=== PATIENT | female | born 1940 | race African-American/Black ===

== ENCOUNTER 2016-11-14 08:57 | Outpatient (CLI) | payer OTHER ==
[2016-11-14] MEDS ORDERED: BARIUM SULFATE 135 ML SUSP.RECON (E-Z-HD) PO ONE (09:23)
== END 2016-11-14 19:38 | disposition home or self-care (01) ==
LOC: SRD 08:57
PROVIDERS: ATTEND Otolaryngology Plastic Surgery within the Head & Neck
DX: K44.9 Diaphragmatic hernia without obstruction or gangrene (principal); R13.10 Dysphagia, unspecified; I70.0 Atherosclerosis of aorta
CPT/HCPCS: 74220-TC

== ENCOUNTER 2019-06-09 22:28 | Inpatient (IN) | payer OTHER ==
[~2019-06-09] VITALS: Ht 172.7 cm; Wt 90.7 kg
[2019-06-10] MEDS ORDERED: OMEGA-3/DHA/EPA/FISH OIL 1 GM CAPSULE ONE (14:30)
[2019-06-11 12:00] VITALS: BP_SYST 140
[2019-06-11 16:55] VITALS: BP_SYST 139
[2019-06-11] MEDS: IBUPROFEN 800 MG TABLET PO SCH (17:00)
[2019-06-11] MEDS: D5/0.45 NS 1,000 ML IV SCH (17:00)
[2019-06-11] MEDS ORDERED: ACETAMINOPHEN 325 MG TABLET PO PRN (17:00)
[2019-06-11] MEDS: BACLOFEN 10 MG TABLET PO SCH ×2 (17:00→21:00)
[2019-06-11 20:49] VITALS: BP_SYST 142
[2019-06-11] MEDS: cefTRIAXone 1 GM IVPB PREMIX 50 ML IV SCH (21:00)
[2019-06-11] MEDS: CALCIUM CITRATE PO SCH (21:00)
[2019-06-11] MEDS: MAGNESIUM PO SCH (21:00)
[2019-06-11] MEDS: ZINC PO SCH (21:00)
[2019-06-11] MEDS: LATANOPROST 2.5 ML DROPS (XALATAN) OP SCH (21:00)
[2019-06-12] VITALS: BP_SYST 153
[2019-06-12] MEDS: MORPHINE 2 MG/ML INJ. SYRINGE IVP PRN ×5 (00:25→22:28)
[2019-06-12] MEDS ORDERED: MORPHINE 2 MG/ML INJ. SYRINGE ONE (00:38)
[2019-06-12] MEDS: D5/0.45 NS 1,000 ML IV SCH ×2 (05:02→13:03)
[2019-06-12] MEDS: LEVOTHYROXINE SODIUM 0.05 MG TABLET PO SCH (05:43)
[2019-06-12 08:00] VITALS: BP_SYST 136
[2019-06-12 08:21] LABS: BASOPHILS # (AUTO) 0.1 K/uL (0.0-0.2); BASOPHILS % (AUTO) 0.9 % (0.0-2.0); EOSINOPHILS # (AUTO) 0.2 K/uL (0.0-0.4); HEMATOCRIT 39.9 % (36-48); HEMOGLOBIN 13.2 g/dL (12.0-16.0); LYMPHOCYTES # (AUTO) 1.2 K/uL (1.0-5.5); LYMPHOCYTES % (AUTO) 20.5 % (20.5-51.5); MEAN CORPUSCULAR HEMOGLOBIN 33 pg (27-31); MEAN CORPUSCULAR HGB CONC 33 % (32-36); MEAN CORPUSCULAR VOLUME 101 fL (79.0-98.0); MONOCYTES # (AUTO) 0.6 K/uL (0.0-1.0); MONOCYTES % (AUTO) 10.8 % (1.7-9.3); NEUTROPHILS # (AUTO) 3.8 K/uL (1.8-7.7); NEUTROPHILS % (AUTO) 63.8 % (40.0-70.0); PLATELET COUNT (AUTO) 157 K/uL (130-430); RED BLOOD CELL COUNT(AUTO) 3.96 MIL/uL (4.2-6.2); RED CELL DISTRIBUTION WIDTH 13.3 % (9.0-15.0)
[2019-06-12 08:29] LABS: ANION GAP 3 (5-15); CALCIUM 7.6 mg/dL (8.4-11.0); CHLORIDE 104 mmol/L (98-107); CREATININE 0.52 mg/dL (0.55-1.30); GLUCOSE 126 mg/dL (70-99); POTASSIUM 3.4 mmol/L (3.5-5.1); SODIUM SERUM 137 mmol/L (136-145); UREA NITROGEN, BLOOD 9 mg/dL (8-21)
[2019-06-12] MEDS: GLUCOSAMINE 1500 MG PO SCH (08:50)
[2019-06-12] MEDS: OMEGA PO SCH (08:50)
[2019-06-12] MEDS: FISH OIL 1200 MG PO SCH (08:50)
[2019-06-12] MEDS: IBUPROFEN 800 MG TABLET PO SCH ×3 (08:56→16:51)
[2019-06-12] MEDS: amLODIPine BESYLATE 5 MG TABLET PO SCH (08:56)
[2019-06-12] MEDS: BACLOFEN 10 MG TABLET PO SCH ×4 (08:56→22:25)
[2019-06-12] MEDS: NAPROXEN 250 MG TABLET PO SCH (08:57)
[2019-06-12 08:58] LABS: C-REACTIVE PROTEIN QUANT 11.3 mg/dL (0-0.5)
[2019-06-12] MEDS: TETRAHYDROZOLINE OPHTHALMIC DROPS (VISINE) OP SCH (08:59)
[2019-06-12 11:06] VITALS: BP_SYST 133
[2019-06-12 11:11] LABS: ERYTHROCYTE SEDIMENTATION RATE 43 MM/HR (0-20)
[2019-06-12] MEDS ORDERED: IBUPROFEN 800 MG TABLET ONE (16:44)
[2019-06-12] MEDS ORDERED: BACLOFEN 10 MG TABLET ONE (16:44)
[2019-06-12 20:00] VITALS: BP_SYST 145
[2019-06-12] MEDS: CALCIUM CITRATE PO SCH (21:00)
[2019-06-12] MEDS: MAGNESIUM PO SCH (21:00)
[2019-06-12] MEDS: ZINC PO SCH (21:00)
[2019-06-12] MEDS: LATANOPROST 2.5 ML DROPS (XALATAN) OP SCH (22:27)
[2019-06-12] MEDS ORDERED: cefTRIAXone 1 GM IVPB PREMIX 50 ML IV ONE (23:03)
[2019-06-12] MEDS: cefTRIAXone 1 GM IVPB PREMIX 50 ML IV SCH (23:08)
[2019-06-13] VITALS: BP_SYST 139
[2019-06-13] MEDS ORDERED: FOSAMAX 70 MG PO SCH (06:00)
[2019-06-13] MEDS: D5/0.45 NS 1,000 ML IV SCH ×3 (06:23→19:10)
[2019-06-13] MEDS: MORPHINE 2 MG/ML INJ. SYRINGE IVP PRN (06:46)
[2019-06-13] MEDS ORDERED: MORPHINE 2 MG/ML INJ. SYRINGE ONE (06:57)
[2019-06-13] MEDS: LEVOTHYROXINE SODIUM 0.05 MG TABLET PO SCH (07:00)
[2019-06-13 07:48] LABS: BASOPHILS % (AUTO) 0.9 % (0.0-2.0); EOSINOPHILS # (AUTO) 0.4 K/uL (0.0-0.4); EOSINOPHILS % (AUTO) 7.8 % (0.0-4.0); HEMATOCRIT 40.9 % (36-48); HEMOGLOBIN 13.5 g/dL (12.0-16.0); LYMPHOCYTES # (AUTO) 1.2 K/uL (1.0-5.5); LYMPHOCYTES % (AUTO) 25.1 % (20.5-51.5); MEAN CORPUSCULAR HEMOGLOBIN 34 pg (27-31); MEAN CORPUSCULAR HGB CONC 33 % (32-36); MEAN CORPUSCULAR VOLUME 101 fL (79.0-98.0); MONOCYTES # (AUTO) 0.6 K/uL (0.0-1.0); MONOCYTES % (AUTO) 13.3 % (1.7-9.3); NEUTROPHILS # (AUTO) 2.5 K/uL (1.8-7.7); NEUTROPHILS % (AUTO) 52.9 % (40.0-70.0); PLATELET COUNT (AUTO) 177 K/uL (130-430); RED BLOOD CELL COUNT(AUTO) 4.04 MIL/uL (4.2-6.2); RED CELL DISTRIBUTION WIDTH 13.4 % (9.0-15.0); WHITE BLOOD COUNT (AUTO) 4.8 K/uL (4.8-10.8)
[2019-06-13] MEDS: NAPROXEN 250 MG TABLET PO SCH (08:00)
[2019-06-13 08:20] LABS: ANION GAP 7 (5-15); CALCIUM 8.1 mg/dL (8.4-11.0); CHLORIDE 106 mmol/L (98-107); CREATININE 0.57 mg/dL (0.55-1.30); GLUCOSE 91 mg/dL (70-99); POTASSIUM 3.9 mmol/L (3.5-5.1); SODIUM SERUM 142 mmol/L (136-145); UREA NITROGEN, BLOOD 15 mg/dL (8-21)
[2019-06-13 08:51] LABS: C-REACTIVE PROTEIN QUANT 10.4 mg/dL (0-0.5)
[2019-06-13 08:55] LABS: ERYTHROCYTE SEDIMENTATION RATE 36 MM/HR (0-20)
[2019-06-13] MEDS: IBUPROFEN 800 MG TABLET PO SCH ×3 (09:00→17:25)
[2019-06-13] MEDS: BACLOFEN 10 MG TABLET PO SCH ×3 (09:00→17:24)
[2019-06-13] MEDS: FISH OIL 1200 MG PO SCH (09:00)
[2019-06-13] MEDS: GLUCOSAMINE 1500 MG PO SCH (09:00)
[2019-06-13] MEDS: OMEGA PO SCH (09:00)
[2019-06-13] MEDS: TETRAHYDROZOLINE OPHTHALMIC DROPS (VISINE) OP SCH (09:00)
[2019-06-13 11:30] VITALS: BP_SYST 143
[2019-06-13] MEDS: amLODIPine BESYLATE 5 MG TABLET PO SCH (12:28)
[2019-06-13 15:29] VITALS: BP_SYST 136
[2019-06-14 00:50] VITALS: BP_SYST 156
[2019-06-14] MEDS: D5/0.45 NS 1,000 ML IV SCH ×2 (05:42→16:41)
[2019-06-14] MEDS: LEVOTHYROXINE SODIUM 0.05 MG TABLET PO SCH (07:39)
[2019-06-14 08:18] VITALS: BP_SYST 149
[2019-06-14] MEDS: NAPROXEN 250 MG TABLET PO SCH (08:29)
[2019-06-14] MEDS: TETRAHYDROZOLINE OPHTHALMIC DROPS (VISINE) OP SCH (09:00)
[2019-06-14] MEDS: IBUPROFEN 800 MG TABLET PO SCH ×4 (09:00→17:00)
[2019-06-14] MEDS: OMEGA PO SCH (09:00)
[2019-06-14] MEDS: GLUCOSAMINE 1500 MG PO SCH (09:00)
[2019-06-14] MEDS: FISH OIL 1200 MG PO SCH (09:00)
[2019-06-14] MEDS: amLODIPine BESYLATE 5 MG TABLET PO SCH (09:28)
[2019-06-14] MEDS: BACLOFEN 10 MG TABLET PO SCH ×4 (09:28→21:08)
[2019-06-14 12:00] VITALS: BP_SYST 146
[2019-06-14 19:00] VITALS: BP_SYST 134; BP_SYST 145
[2019-06-14] MEDS: traMADol HCL HCL 50 MG TABLET (ULTRAM) PO PRN (19:47)
[2019-06-14 20:00] VITALS: BP_SYST 134
[2019-06-14] MEDS: ZINC PO SCH (21:00)
[2019-06-14] MEDS: CALCIUM CITRATE PO SCH (21:00)
[2019-06-14] MEDS: MAGNESIUM PO SCH (21:00)
[2019-06-14] MEDS: cefTRIAXone 1 GM IVPB PREMIX 50 ML IV SCH ×2 (21:04→21:08)
[2019-06-14] MEDS: LATANOPROST 2.5 ML DROPS (XALATAN) OP SCH ×2 (21:06→21:08)
[2019-06-15 00:06] VITALS: BP_SYST 144
[2019-06-15] MEDS: D5/0.45 NS 1,000 ML IV SCH ×2 (01:00→11:00)
[2019-06-15] MEDS: LEVOTHYROXINE SODIUM 0.05 MG TABLET PO SCH (06:06)
[2019-06-15 07:17] LABS: BASOPHILS % (AUTO) 0.9 % (0.0-2.0); EOSINOPHILS # (AUTO) 0.2 K/uL (0.0-0.4); EOSINOPHILS % (AUTO) 4.2 % (0.0-4.0); HEMATOCRIT 38.4 % (36-48); LYMPHOCYTES # (AUTO) 1.2 K/uL (1.0-5.5); MEAN CORPUSCULAR HEMOGLOBIN 34 pg (27-31); MEAN CORPUSCULAR HGB CONC 34 % (32-36); MEAN CORPUSCULAR VOLUME 100 fL (79.0-98.0); MONOCYTES # (AUTO) 0.7 K/uL (0.0-1.0); MONOCYTES % (AUTO) 13.1 % (1.7-9.3); NEUTROPHILS # (AUTO) 2.9 K/uL (1.8-7.7); NEUTROPHILS % (AUTO) 57.8 % (40.0-70.0); PLATELET COUNT (AUTO) 198 K/uL (130-430); RED BLOOD CELL COUNT(AUTO) 3.86 MIL/uL (4.2-6.2); RED CELL DISTRIBUTION WIDTH 12.9 % (9.0-15.0); WHITE BLOOD COUNT (AUTO) 5.1 K/uL (4.8-10.8)
[2019-06-15 07:23] LABS: ANION GAP 4 (5-15); C-REACTIVE PROTEIN QUANT 3.6 mg/dL (0-0.5); CALCIUM 7.8 mg/dL (8.4-11.0); CHLORIDE 105 mmol/L (98-107); CREATININE 0.61 mg/dL (0.55-1.30); GLUCOSE 104 mg/dL (70-99); POTASSIUM 3.8 mmol/L (3.5-5.1); SODIUM SERUM 141 mmol/L (136-145); UREA NITROGEN, BLOOD 11 mg/dL (8-21)
[2019-06-15 08:12] VITALS: BP_SYST 136
[2019-06-15 08:27] LABS: ERYTHROCYTE SEDIMENTATION RATE 41 MM/HR (0-20)
[2019-06-15] MEDS: amLODIPine BESYLATE 5 MG TABLET PO SCH (08:47)
[2019-06-15] MEDS: NAPROXEN 250 MG TABLET PO SCH (08:47)
[2019-06-15] MEDS: BACLOFEN 10 MG TABLET PO SCH ×2 (08:48→12:48)
[2019-06-15] MEDS: IBUPROFEN 800 MG TABLET PO SCH ×2 (08:50→12:49)
[2019-06-15] MEDS: TETRAHYDROZOLINE OPHTHALMIC DROPS (VISINE) OP SCH (08:51)
[2019-06-15] MEDS: GLUCOSAMINE 1500 MG PO SCH (08:52)
[2019-06-15] MEDS: FISH OIL 1200 MG PO SCH (08:52)
[2019-06-15] MEDS: OMEGA PO SCH (08:52)
[2019-06-15] MEDS ORDERED: BACL10TA PO (09:29)
[2019-06-15] MEDS ORDERED: SYN50 PO (09:29)
[2019-06-15] MEDS ORDERED: XALEYE OP (09:29)
[2019-06-15] MEDS ORDERED: AMLO5TAB4 PO (09:29)
[2019-06-15] MEDS ORDERED: LEVO250T58 PO (09:29)
[2019-06-15] MEDS ORDERED: cefTRIAXone 1 GM IVPB PREMIX 50 ML IV ONE (10:30)
[2019-06-15 11:24] VITALS: BP_SYST 137
[2019-06-15 11:41] VITALS: BP_SYST 137
[2019-06-15] MEDS: traMADol HCL HCL 50 MG TABLET (ULTRAM) PO PRN (12:49)
[2019-06-16 10:36] LABS: BILIRUBIN,URINE NEGATIVE (NEGATIVE); CLARITY/URINE CLEAR (CLEAR); COLOR,URINE YELLOW (YELLOW); GLUCOSE,URINE NEGATIVE (NEGATIVE); KETONES,URINE NEGATIVE (NEGATIVE); PROTEIN URINE NEGATIVE (NEGATIVE)
[2019-06-16 10:37] LABS: BLOOD, URINE 2+ (NEGATIVE); LEUKOCYTE ESTERASE ,URINE 3+ (NEGATIVE); NITRITE, URINE NEGATIVE (NEGATIVE); UROBILINOGEN,URINE 0.2 (0.2-1.0)
[2019-06-16 10:42] LABS: WBC,URINE 20-50 /HPF (0-3)
[2019-06-16 10:43] LABS: BACTERIA,URINE MODERATE /HPF (None Seen); MUCUS,URINE 1+ /LPF (None Seen)
[2019-06-16 10:45] LABS: ANION GAP 6 (5-15); ASPARTATE AMINOTRANSFERASE 35 U/L (10-37); CALCIUM 8.7 mg/dL (8.4-11.0); CHLORIDE 102 mmol/L (98-107); CREATININE 0.74 mg/dL (0.55-1.30); GLUCOSE 119 mg/dL (70-99); POTASSIUM 3.5 mmol/L (3.5-5.1); SODIUM SERUM 139 mmol/L (136-145); TOTAL BILIRUBIN 0.4 mg/dL (0.0-1.0); UREA NITROGEN, BLOOD 17 mg/dL (8-21)
[2019-06-16 10:46] LABS: ALANINE AMINOTRANSFERASE 41 U/L (12-78); ALBUMIN 3.5 g/dL (3.4-4.8); PROTHROMBIN TIME 10.3 SECS (9.5-12.5)
[2019-06-16 10:47] LABS: HEMATOCRIT 41.6 % (36-48); HEMOGLOBIN 13.9 g/dL (12.0-16.0); RED BLOOD CELL COUNT(AUTO) 4.17 MIL/uL (4.2-6.2); WHITE BLOOD COUNT (AUTO) 5.5 K/uL (4.8-10.8)
[2019-06-16 10:48] LABS: LYMPHOCYTES % (AUTO) 15.4 % (20.5-51.5); MEAN CORPUSCULAR HEMOGLOBIN 33 pg (27-31); MEAN CORPUSCULAR HGB CONC 33 % (32-36); MEAN CORPUSCULAR VOLUME 100 fL (79.0-98.0); NEUTROPHILS % (AUTO) 69.9 % (40.0-70.0); PLATELET COUNT (AUTO) 167 K/uL (130-430); RED CELL DISTRIBUTION WIDTH 13.6 % (9.0-15.0)
[2019-06-16 10:49] LABS: BASOPHILS % (AUTO) 0.5 % (0.0-2.0); EOSINOPHILS # (AUTO) 0.1 K/uL (0.0-0.4); EOSINOPHILS % (AUTO) 1.2 % (0.0-4.0); LYMPHOCYTES # (AUTO) 0.9 K/uL (1.0-5.5); MONOCYTES # (AUTO) 0.7 K/uL (0.0-1.0); NEUTROPHILS # (AUTO) 3.9 K/uL (1.8-7.7)
[2019-06-23 09:50] LABS: BILIRUBIN,URINE NEGATIVE (NEGATIVE); BLOOD, URINE 3+ (NEGATIVE); CLARITY/URINE SLIGHTLY CLOUDY (CLEAR); COLOR,URINE YELLOW (YELLOW); GLUCOSE,URINE NEGATIVE (NEGATIVE); KETONES,URINE NEGATIVE (NEGATIVE); LEUKOCYTE ESTERASE ,URINE 3+ (NEGATIVE); NITRITE, URINE NEGATIVE (NEGATIVE); PROTEIN URINE TRACE (NEGATIVE); UROBILINOGEN,URINE 0.2 (0.2-1.0)
[2019-06-23 09:51] LABS: BACTERIA,URINE MODERATE /HPF (None Seen); WBC,URINE 50-80 /HPF (0-3)
[2019-06-23 09:52] LABS: MUCUS,URINE 1+ /LPF (None Seen)
== END 2019-06-15 13:53 | DRG 74 ==
LOC: SED 22:28 → SMU 06-10 05:32
PROVIDERS: ADMIT Preventive Medicine Preventive Medicine/Occupational Environmental Medicine; ATTEND Preventive Medicine Preventive Medicine/Occupational Environmental Medicine
DX: M54.10 Radiculopathy, site unspecified (principal); N39.0 Urinary tract infection, site not specified; G89.29 Other chronic pain; N20.0 Calculus of kidney; E78.5 Hyperlipidemia, unspecified; E03.9 Hypothyroidism, unspecified; E66.9 Obesity, unspecified; I10 Essential (primary) hypertension; J45.909 Unspecified asthma, uncomplicated; M19.90 Unspecified osteoarthritis, unspecified site; M81.0 Age-related osteoporosis without current pathological fracture; Z68.30 Body mass index [BMI] 30.0-30.9, adult; Z79.899 Other long term (current) drug therapy; Z91.041 Radiographic dye allergy status; Z91.012 Allergy to eggs; Z88.5 Allergy status to narcotic agent; Z91.013 Allergy to seafood
CPT/HCPCS: 36415; 72110; 72128; 72131; 80048; 80053; 81000-TC; 83605; 85025; 85610-TC; 85651-TC; 85730-TC; 86140; 87040-TC; 87086; 96365; 96375; 96376; 97116-GP; 97530-GP; 99285; J0696; J2270

== ENCOUNTER 2022-07-22 00:08 | Emergency (ER) | payer OTHER ==
[~2022-07-22] VITALS: Ht 162.6 cm; Wt 72.6 kg
[~2022-07-22 00:08] MED LIST: AMLO5TAB4 PO; BACL10TA PO; LEVO250T73 PO; NAPR-1172 PO; SYN50 PO; XALEYE OP
[2022-07-22 00:15] VITALS: BP_SYST 148
--- NOTE | 2022-07-22 00:42 | NUR ---
Patient to ER bed 3 to gown for evaluation. Side rails up. Report given to YOLIS MATA(REG).
--- NOTE | 2022-07-22 00:43 | NUR ---
ER at bedside examining patient.
[2022-07-22] MEDS ORDERED: ERYEYE LEFT EYE (02:26)
== END 2022-07-22 02:47 | disposition home or self-care (01) ==
LOC: SED 00:08
DX: T26.11XA Burn of cornea and conjunctival sac, right eye, initial encounter (principal); T26.12XA Burn of cornea and conjunctival sac, left eye, initial encounter; H16.002 Unspecified corneal ulcer, left eye; J45.909 Unspecified asthma, uncomplicated; I10 Essential (primary) hypertension; Z88.5 Allergy status to narcotic agent; Z91.012 Allergy to eggs; Z91.041 Radiographic dye allergy status; Z79.899 Other long term (current) drug therapy; X58.XXXA Exposure to other specified factors, initial encounter; Y93.89 Activity, other specified; Y92.89 Other specified places as the place of occurrence of the external cause; Y99.8 Other external cause status
CPT/HCPCS: 99283

== ENCOUNTER 2023-08-26 14:10 | Observation (INO) | payer OTHER ==
[~2023-08-26] VITALS: Ht 162.6 cm; Wt 70.3 kg
[2023-08-26 14:10] VITALS: BP_SYST 138; PULSE 87; RESP 19; TEMP 97.8; O2SAT 96
[~2023-08-26 14:10] MED LIST changes: +ERYEYE LEFT EYE
[2023-08-26] MEDS: NACL 0.9% 1,000 ML IV ONE (15:04)
[2023-08-26 15:06] LABS: BASOPHILS % (AUTO) 0.3 % (0.0-2.0); EOSINOPHILS # (AUTO) 0.3 K/uL (0.0-0.4); EOSINOPHILS % (AUTO) 6.2 % (0.0-4.0); HEMATOCRIT 38.8 % (36-48); LYMPHOCYTES # (AUTO) 1.2 K/uL (1.0-5.5); LYMPHOCYTES % (AUTO) 26.3 % (20.5-51.5); MEAN CORPUSCULAR HEMOGLOBIN 34 pg (27-31); MEAN CORPUSCULAR HGB CONC 34 % (32-36); MEAN CORPUSCULAR VOLUME 100 fL (79.0-98.0); MONOCYTES # (AUTO) 0.5 K/uL (0.0-1.0); NEUTROPHILS # (AUTO) 2.5 K/uL (1.8-7.7); NEUTROPHILS % (AUTO) 56.2 % (40.0-70.0); PLATELET COUNT (AUTO) 200 K/uL (130-430); RED BLOOD CELL COUNT(AUTO) 3.87 MIL/uL (4.2-6.2); RED CELL DISTRIBUTION WIDTH 13.5 % (9.0-15.0); WHITE BLOOD COUNT (AUTO) 4.4 K/uL (4.8-10.8)
[2023-08-26 15:24] LABS: INFLUENZA TYPE A Negative (NEGATIVE); INFLUENZA TYPE B NEGATIVE (NEGATIVE)
[2023-08-26 15:37] LABS: ANION GAP 6 (5-15); CALCIUM 8.4 mg/dL (8.4-11.0); CARBON DIOXIDE 32 mmol/L (23-29); CHLORIDE 107 mmol/L (98-107); CREATININE 0.64 mg/dL (0.55-1.30); GLUCOSE 94 mg/dL (74-106); POTASSIUM 3.5 mmol/L (3.5-5.1); SODIUM SERUM 145 mmol/L (136-145); UREA NITROGEN, BLOOD 19 mg/dL (8-21)
[2023-08-26] MEDS ORDERED: TRAM50TA2 PO (16:37)
[2023-08-26 18:18] LABS: BILIRUBIN,URINE NEGATIVE (NEGATIVE); BLOOD, URINE NEGATIVE (NEGATIVE); CLARITY/URINE CLEAR (CLEAR); COLOR,URINE YELLOW (YELLOW); GLUCOSE,URINE NEGATIVE (NEGATIVE); KETONES,URINE NEGATIVE (NEGATIVE); LEUKOCYTE ESTERASE ,URINE 1+ (NEGATIVE); NITRITE, URINE NEGATIVE (NEGATIVE); PH,URINE 6.5 (5.0-8.0); PROTEIN URINE NEGATIVE (NEGATIVE); UROBILINOGEN,URINE 0.2 (0.2-1.0)
[2023-08-26 18:39] LABS: BACTERIA,URINE FEW /HPF (None Seen); MUCUS,URINE None Seen /LPF (None Seen); RBC,URINE NONE SEEN /HPF (0-3)
[2023-08-26] MEDS ORDERED: ONDANSETRON HCL 4 MG/2 ML VIAL IVP PRN (22:15)
[2023-08-26] MEDS ORDERED: NAPROXEN 250 MG TABLET PO PRN (22:15)
[2023-08-26] MEDS ORDERED: LORazepam 2 MG/ML VIAL IVP PRN (22:15)
[2023-08-27 04:14] LABS: BASOPHILS % (AUTO) 1.1 % (0.0-2.0); EOSINOPHILS # (AUTO) 0.3 K/uL (0.0-0.4); EOSINOPHILS % (AUTO) 7.3 % (0.0-4.0); HEMATOCRIT 36.9 % (36-48); HEMOGLOBIN 12.3 g/dL (12.0-16.0); LYMPHOCYTES # (AUTO) 1.2 K/uL (1.0-5.5); LYMPHOCYTES % (AUTO) 27.3 % (20.5-51.5); MEAN CORPUSCULAR HEMOGLOBIN 34 pg (27-31); MEAN CORPUSCULAR HGB CONC 33 % (32-36); MEAN CORPUSCULAR VOLUME 100 fL (79.0-98.0); MONOCYTES # (AUTO) 0.6 K/uL (0.0-1.0); MONOCYTES % (AUTO) 14.2 % (1.7-9.3); NEUTROPHILS # (AUTO) 2.2 K/uL (1.8-7.7); NEUTROPHILS % (AUTO) 50.1 % (40.0-70.0); PLATELET COUNT (AUTO) 201 K/uL (130-430); RED BLOOD CELL COUNT(AUTO) 3.69 MIL/uL (4.2-6.2); RED CELL DISTRIBUTION WIDTH 13.4 % (9.0-15.0); WHITE BLOOD COUNT (AUTO) 4.3 K/uL (4.8-10.8)
[2023-08-27 04:22] LABS: ANION GAP 7 (5-15); CALCIUM 8.2 mg/dL (8.4-11.0); CARBON DIOXIDE 30 mmol/L (23-29); CHLORIDE 107 mmol/L (98-107); CREATININE 0.51 mg/dL (0.55-1.30); GLUCOSE 92 mg/dL (74-106); PHOSPHORUS 3.3 mg/dL (2.7-4.5); POTASSIUM 3.6 mmol/L (3.5-5.1); SODIUM SERUM 144 mmol/L (136-145); UREA NITROGEN, BLOOD 13 mg/dL (8-21)
[2023-08-27] MEDS: NORMAL SALINE 5 ML DISP.SYRIN IVF SCH (06:34)
[2023-08-27] MEDS: LEVOTHYROXINE SODIUM 0.05 MG TABLET PO SCH (08:20)
[2023-08-27] MEDS: ERYTHROMYCIN BASE 0.5% EYE OINT...G. OP SCH (09:00)
[2023-08-27] MEDS: BACLOFEN 10 MG TABLET PO SCH (09:14)
[2023-08-27] MEDS: amLODIPine BESYLATE 5 MG TABLET PO SCH (09:14)
[2023-08-27] MEDS: levoFLOXacin 250 MG TABLET PO SCH (09:14)
[2023-08-27] MEDS ORDERED: SYN50 PO (10:21)
[2023-08-27] MEDS ORDERED: XALEYE OP (10:21)
[2023-08-27] MEDS ORDERED: NAPR-690 PO (10:21)
[2023-08-27] MEDS ORDERED: AMLO5TAB4 PO (10:25)
[2023-08-27] MEDS ORDERED: ALEN70TA27 PO (10:25)
[2023-08-27] MEDS ORDERED: CYCL10TA24 PO (10:25)
[2023-08-27] MEDS ORDERED: CLOP75TA32 PO (10:25)
[2023-08-27] MEDS ORDERED: MIRA50TA PO (10:25)
[2023-08-27] MEDS ORDERED: FURO-150 PO (10:25)
[2023-08-27] MEDS ORDERED: PROP1DRO4 OP (10:27)
[2023-08-27] MEDS ORDERED: LEVOTHYROXINE SODIUM 0.05 MG TABLET PO SCH (11:00)
[2023-08-27] MEDS ORDERED: ACETAMINOPHEN 325 MG TABLET PO PRN (11:00)
[2023-08-27] MEDS ORDERED: traMADol HCL HCL 50 MG TABLET (ULTRAM) PO PRN (11:00)
[2023-08-27] MEDS ORDERED: CYCLOBENZAPRINE HCL 10 MG TABLET (FLEXERIL) PO PRN (11:00)
[2023-08-27] MEDS ORDERED: ONDANSETRON HCL 4 MG/2 ML VIAL IVP PRN (11:00)
[2023-08-27] MEDS ORDERED: amLODIPine BESYLATE 5 MG TABLET PO SCH (11:00)
[2023-08-27] MEDS ORDERED: NON-FORMULARY MEDICATION (Mirabegron (Myrbetriq) 50 MG) PO SCH (11:00)
[2023-08-27] MEDS ORDERED: LORazepam 2 MG/ML VIAL IVP PRN (11:00)
[2023-08-27] MEDS: FUROSEMIDE 20 MG TABLET PO ONE (11:30)
[2023-08-27] MEDS: CLOPIDOGREL BISULFATE 75 MG TABLET PO ONE (13:15)
[2023-08-27] MEDS ORDERED: NORMAL SALINE 5 ML DISP.SYRIN IVF SCH (14:00)
[2023-08-27] MEDS: PEG 400/HYPROMELLOSE/GLYCERIN 15 ML DROPS OP SCH (15:00)
[2023-08-27] MEDS: traMADol HCL HCL 50 MG TABLET (ULTRAM) PO PRN (17:24)
[2023-08-27] MEDS: NAPROXEN 250 MG TABLET PO PRN (19:05)
[2023-08-27] MEDS ORDERED: LATANOPROST 2.5 ML DROPS (XALATAN) OP SCH (21:00)
[2023-08-27] MEDS: ACETAMINOPHEN 325 MG TABLET PO PRN (21:26)
[2023-08-27] MEDS: LATANOPROST 2.5 ML DROPS (XALATAN) OP SCH (21:33)
[2023-08-28 00:27] VITALS: BP_SYST 147; PULSE 83; RESP 20; TEMP 98.2
[2023-08-28 05:57] LABS: BASOPHILS % (AUTO) 1.1 % (0.0-2.0); EOSINOPHILS # (AUTO) 0.3 K/uL (0.0-0.4); EOSINOPHILS % (AUTO) 7.1 % (0.0-4.0); HEMATOCRIT 37.7 % (36-48); HEMOGLOBIN 12.6 g/dL (12.0-16.0); LYMPHOCYTES # (AUTO) 1.3 K/uL (1.0-5.5); LYMPHOCYTES % (AUTO) 35.5 % (20.5-51.5); MEAN CORPUSCULAR HEMOGLOBIN 34 pg (27-31); MEAN CORPUSCULAR HGB CONC 34 % (32-36); MEAN CORPUSCULAR VOLUME 100 fL (79.0-98.0); MONOCYTES # (AUTO) 0.7 K/uL (0.0-1.0); MONOCYTES % (AUTO) 18.4 % (1.7-9.3); NEUTROPHILS # (AUTO) 1.4 K/uL (1.8-7.7); NEUTROPHILS % (AUTO) 37.9 % (40.0-70.0); PLATELET COUNT (AUTO) 203 K/uL (130-430); RED BLOOD CELL COUNT(AUTO) 3.77 MIL/uL (4.2-6.2); RED CELL DISTRIBUTION WIDTH 13.3 % (9.0-15.0)
[2023-08-28 06:10] LABS: ALANINE AMINOTRANSFERASE 23 U/L (12-78); ALBUMIN 2.9 g/dL (3.4-4.8); ANION GAP 5 (5-15); ASPARTATE AMINOTRANSFERASE 17 U/L (10-37); CALCIUM 8.6 mg/dL (8.4-11.0); CARBON DIOXIDE 32 mmol/L (23-29); CHLORIDE 105 mmol/L (98-107); CREATININE 0.73 mg/dL (0.55-1.30); GLUCOSE 111 mg/dL (74-106); PHOSPHORUS 3.9 mg/dL (2.7-4.5); POTASSIUM 3.9 mmol/L (3.5-5.1); SODIUM SERUM 142 mmol/L (136-145); TOTAL BILIRUBIN 0.4 mg/dL (0.0-1.0); TOTAL PROTEIN, SERUM 6.5 g/dL (6.4-8.3); UREA NITROGEN, BLOOD 17 mg/dL (8-21)
[2023-08-28 07:12] LABS: WHITE BLOOD COUNT (AUTO) 3.7 K/uL (4.8-10.8)
[2023-08-28 08:50] VITALS: BP_SYST 143; PULSE 80; RESP 16; TEMP 98.2; O2SAT 100
[2023-08-28] MEDS ORDERED: MYRBETRIQ 50 MG PO SCH (09:00)
[2023-08-28] MEDS: CLOPIDOGREL BISULFATE 75 MG TABLET PO SCH (09:16)
[2023-08-28] MEDS: FUROSEMIDE 20 MG TABLET PO SCH (09:16)
[2023-08-28 10:20] VITALS: BP_SYST 146; PULSE 87; RESP 16; TEMP 98.4; O2SAT 100
[2023-08-30] MEDS ORDERED: ALENDRONATE SODIUM 35 MG TABLET PO SCH (06:00)
== END 2023-08-28 10:50 | disposition home health service (06) ==
LOC: SED 14:10 → STU 16:27
PROVIDERS: ADMIT Preventive Medicine Preventive Medicine/Occupational Environmental Medicine; ATTEND Preventive Medicine Preventive Medicine/Occupational Environmental Medicine
DX: D72.819 Decreased white blood cell count, unspecified (principal); Z20.822 Contact with and (suspected) exposure to COVID-19; J45.909 Unspecified asthma, uncomplicated; I10 Essential (primary) hypertension; E03.9 Hypothyroidism, unspecified; M19.90 Unspecified osteoarthritis, unspecified site; G89.29 Other chronic pain; M54.9 Dorsalgia, unspecified; H40.9 Unspecified glaucoma; R73.9 Hyperglycemia, unspecified; E88.09 Other disorders of plasma-protein metabolism, not elsewhere classified; Z87.09 Personal history of other diseases of the respiratory system; Z90.49 Acquired absence of other specified parts of digestive tract; Z79.899 Other long term (current) drug therapy
CPT/HCPCS: 96360; 80048 ×2; 81000; 81015; 81001; 83880; 85025 ×3; 87086; 84484; 36415 ×3; 93005; 71045; 70450; 99285; 87804 ×2; 87426; 83735 ×2; 84100 ×2; 93306; 93880; 97530; 97116; 97162; 80053; G0378 ×3